=== PATIENT | male | born 1930 | race Caucasian/White ===

== ENCOUNTER 2017-02-26 18:31 | Observation (INO) | payer MEDICARE, OTHER ==
[~2017-02-26] VITALS: Ht 167.6 cm; Wt 88.0 kg
[2017-02-26] MEDS ORDERED: SOD CHLORIDE 0.9% 500 ML IV STA (18:49)
--- NOTE | 2017-02-26 19:04 | ERA ---
ER Documentation Chief Complaint Date/Time DATE: 02/26/17 TIME: 19:03 Chief Complaint bloody stool x 2 starting this afternoon HPI 86-year-old man brought in by EMS from senior care for blood per rectum, nurses at the facility noted 2 episodes today of bright red blood per rectum and melena. He has had no fevers or chills, no chest pain or shortness of breath, no loss of consciousness. HPI supplemented by reviewing past medical history, senior care records, speaking to EMS, nursing staff. ROS All systems reviewed and are negative except as per history of present illness. Allergies Allergies: Coded Allergies: No Known Allergy (Unverified , 02/26/17) PMhx/Soc Myasthenia gravis, hypertension, gastroesophageal reflux disease, rheumatoid arthritis, BPH, dysphagia, tracheostomy, gastrostomy tube, diabetes mellitus, psychiatric illness, bedbound state History of Surgery: Yes (trache; gtube) Anesthesia Reaction: No Hx Neurological Disorder: No Hx Respiratory Disorders: No Hx Cardiac Disorders: Yes (htn) Hx Psychiatric Problems: No Hx Miscellaneous Medical Probl: Yes (anemia, dm2, gerd, parkinsons, dyphagia; myasthenia gravis) Hx Alcohol Use: No Hx Substance Use: No Hx Tobacco Use: No Smoking Status: Never smoker FmHx Family History: No diabetes Physical Exam Vitals Vital Signs Date Time Temp Pulse Resp B/P Pulse Ox O2 Delivery O2 Flow Rate FiO2 02/26/17 20:40 72 19 96/78 100 Room Air 3.0 Trach Collar 02/26/17 19:30 98 3.0 30 02/26/17 19:18 Simple Mask 3 02/26/17 18:38 98.9 64 20 108/62 100 Physical Exam GENERAL: Well-developed, elderly, chronically debilitated man, afebrile HEENT: Dry mucous membranes, pink conjunctiva, no cervical spine tenderness or deformity, tracheostomy in place NEURO: Alert and oriented 3, cranial nerves II through XII intact bilaterally, pupils equal round reactive to light, no facial asymmetry CARDIAC: Regular rate and rhythm, no murmurs rubs or gallops LUNGS: Clear bilaterally no wheezing crackles or stridor ABDOMEN: Soft nontender, no guarding, no rigidity, no rebound, no psoas sign no obturator sign. SKIN: Warm and dry to touch, no abrasions, contusions, or hematomas, no lacerations, no ecchymosis, no target lesions, and without ulcers EXTREMITIES: No clubbing cyanosis or edema, calves are bilaterally symmetrical, no Homans sign, no popliteal cord sign. Distal pulses equal and bilateral PSYCH: Normal affect without agitation or irritability Result Diagram: 02/26/17190402/26/171904 Results 24 hrs Laboratory Tests Test 02/26/17 19:05 White Blood Count 9.610^3/ul Red Blood Count 3.4010^6/ul Hemoglobin 10.4g/dl Hematocrit 33.5% Mean Corpuscular Volume 98.5fl Mean Corpuscular Hemoglobin 30.6pg Mean Corpuscular Hemoglobin Concent 31.0g/dl Red Cell Distribution Width 17.7% Platelet Count 60914^3/UL Mean Platelet Volume 9.5fl Neutrophils % 83.4% Lymphocytes % 6.9% Monocytes % 5.7% Eosinophils % 1.4% Basophils % 0.2% Nucleated Red Blood Cells % 0.0/100WBC Neutrophils # 8.010^3/ul Lymphocytes # 0.710^3/ul Monocytes # 0.610^3/ul Eosinophils # 0.110^3/ul Basophils # 0.010^3/ul Nucleated Red Blood Cells # 0.010^3/ul Prothrombin Time 11.7Sec Prothrombin Time Ratio 0.9 INR International Normalized Ratio 0.86 Activated Partial Thromboplast Time 28.2Sec Sodium Level 134mmol/L Potassium Level 4.2mmol/L Chloride Level 97mmol/L Carbon Dioxide Level 37mmol/L Anion Gap 4 Blood Urea Nitrogen 38mg/dl Creatinine 1.13mg/dl Glucose Level 103mg/dl Calcium Level 8.5mg/dl Total Bilirubin 0.2mg/dl Direct Bilirubin 0.00mg/dl Indirect Bilirubin 0.2mg/dl Aspartate Amino Transf (AST/SGOT) 22IU/L Alanine Aminotransferase (ALT/SGPT) 41IU/L Alkaline Phosphatase 111IU/L Troponin I 0.122ng/ml Total Protein 5.3g/dl Albumin 3.2g/dl Globulin 2.10g/dl Albumin/Globulin Ratio 1.52 Lipase 91U/L Current Medications Medications (Trade) Dose Ordered Sig/Kenzie Route PRN Reason Start Time Stop Time Status Last Admin Dose Admin Sodium Chloride (NS) 500 ml @ 500 mls/hr Q1H STAT IV 02/26/17 18:49 02/26/17 19:48 DC 02/26/17 19:17 Procedures/MDM IV line was established patient was placed on electronic device monitor rhythm strip revealed a narrow complex regular rhythm at about 70 bpm. Patient was afebrile. EKG performed, read by me revealed an atrial fibrillation rate controlled at 68 bpm, normal axis, narrow QRS complex, no concerning ST elevations or depressions noted. One view chest x-ray performed, read by me there is atelectatic changes bilaterally, and sternotomy wires, no acute infiltrates, no pneumothorax. I administered about 2 L of normal saline normal saline intravenously for dehydration. Patient is without complaints of pain and he has no active bleeding at this time. CBC was unremarkable, electrolytes revealed dehydration with a BUN/creatinine of 38/1.1, liver function tests normal, troponin elevated at 0.12. We will follow and trend out the troponin if the second troponin is higher he may require antiplatelet and/or anticoagulant therapy although he is without complaints of chest pain at this time and presented with blood per rectum so antiplatelet therapy will be deferred for now. CT scan of the abdomen and pelvis has been ordered results are unremarkable, gastrostomy tube is in place, no evidence of acute inflammatory or infectious pathology. Patient will be admitted to [facility] under Dr. Mcarthur for continued medical management and possible colonoscopy Departure Diagnosis: Primary Impression: Rectal bleeding Additional Impressions: Dehydration Myasthenia gravis Non-STEMI (non-ST elevated myocardial infarction) Condition: GARRETT Hightower MD Feb 26, 2017 19:04
[2017-02-26 19:11] LABS: ADD SCAN DIFF NO
[2017-02-26 19:30] LABS: INR 0.86; PROTIME 11.7 Sec (12.2-14.2); PT RATIO 0.9
[2017-02-26 19:31] LABS: PARTIAL THROMBOPLASTIN TIME 28.2 Sec (25.0-35.0)
[2017-02-26 19:32] LABS: BASOPHILS % 0.2 % (0.0-2.0); EOSINOPHILS # 0.1 10^3/ul (0.0-0.5); EOSINOPHILS % 1.4 % (0.0-7.0); HEMATOCRIT 33.5 % (42.0-52.0); HEMOGLOBIN 10.4 g/dl (14.0-18.0); LYMPHOCYTES # 0.7 10^3/ul (0.8-2.9); LYMPHOCYTES % 6.9 % (15.0-51.0); MEAN CORPUSCULAR HEMOGLOBIN 30.6 pg (29.0-33.0); MEAN CORPUSCULAR VOLUME 98.5 fl (82.0-101.0); MEAN PLATELET VOLUME 9.5 fl (7.4-10.4); MONOCYTE # 0.6 10^3/ul (0.3-0.9); MONOCYTES % 5.7 % (0.0-11.0); NEUTROPHILS % 83.4 % (39.0-77.0); PLATELET COUNT 228 10^3/UL (140-415); RED CELL DISTRIBUTION WIDTH 17.7 % (11.5-14.5); WHITE BLOOD COUNT 9.6 10^3/ul (4.8-10.8)
--- NOTE | 2017-02-26 19:32 | RADRPT ---
PROCEDURE: XR Chest. CLINICAL INDICATION: Shortness of breath. Sepsis and upper GI bleed. TECHNIQUE: Single frontal view. COMPARISON: 01/28/2017. FINDINGS: The tracheostomy tube is in satisfactory position. There is mild atelectasis at the lung bases, imp roved on the right and unchanged on the left. There are benign calcified granulomas in the left mid to lower lung zone laterally. The lungs are otherwise clear. The heart is enlarged. There is calcification in the aorta consistent with atherosclerosis. There are sternal wires and mediastinal clips. There is no pleural effusion. There is no pneumothorax. IMPRESSION: 1. Improved appearance of the right lung base. 2. No other change from 01/28/2017. RPTAT: QQ .Diogenes Pickens MD, Date Time Electronically viewed and signed by .Diogenes Pickens MD, on 02/26/2017 19:32 .R/
[2017-02-26 19:36] LABS: ALBUMIN 3.2 g/dl (3.3-4.9); ALBUMIN/GLOBULIN RATIO 1.52; BILIRUBIN,INDIRECT 0.2 mg/dl (0-1.1); BILIRUBIN,TOTAL 0.2 mg/dl (0.2-1.3); CALCIUM 8.5 mg/dl (8.4-10.2); CREATININE 1.13 mg/dl (0.61-1.24); POTASSIUM 4.2 mmol/L (3.5-5.1); TOTAL PROTEIN 5.3 g/dl (6.1-8.1)
[2017-02-26 19:47] LABS: TROPONIN-I 0.122 ng/ml (0.00-0.12)
--- NOTE | 2017-02-26 22:19 | RADRPT ---
PROCEDURE: CT abdomen and pelvis without contrast. CLINICAL INDICATION: Abdominal pain TECHNIQUE: CT scan of the abdomen and pelvis without contrast was performed. Sagittal and coronal reformatted images were obtained from the axial source images. CTDI = 21.18 mGy; DLP = 1213.84 mGy- cm COMPARISON: None. FINDINGS: Visualized lower thorax: Left greater than right lower lobe subsegmental atelectasis or scarring wi th mild elevation of the left hemidiaphragm. Sternotomy wires are present. There is no evidence fo r pleural effusion. Liver, gallbladder, pancreas and spleen: The liver is normal and size, contour and attenuation. Th ere is no evidence for a liver mass or ductal dilatation. Cholecystectomy clips are seen. No commo n bile duct abnormality is demonstrated. Mild fatty deposition throughout the pancreas is present w ithout pancreatitis or ductal dilatation. The spleen is normal in size. Adrenal glands and genitourinary system: The adrenal glands are normal bilaterally. Mild bilateral renal cortex thinning is noted without evidence of calculus or hydronephrosis, mild bilateral renal atrophy is seen. The ureters are unremarkable. No urinary bladder abnormality is demonstrated. Th e prostate gland is normal in size. The visualized scrotum is unremarkable. Gastrointestinal system: A gastrostomy is in good position the bulb within the lumen of the stomach . There is no evidence of gastric wall thickening. The small bowel is normal in caliber with no il eus, obstruction or wall thickening. There is no evidence of appendicitis. A few diverticula of the colon are present. There is no evidence for colitis or diverticulitis. Peritoneum, retroperitoneum, lymph nodes and vessels: The abdominal aorta is normal in caliber. The re is severe aortic and iliac atherosclerotic calcification. The inferior vena cava is unremarkable . There is no evidence for adenopathy or mass. There is no ascites. No pneumoperitoneum is present Osseous structures and musculoskeletal findings: Demineralization with severe multilevel degenerati ve spondylosis of the thoracolumbar spine without evidence of fracture, lytic or blastic lesion. Mi ld degenerative narrowing of the hip joints is present bilaterally. No muscular abnormality or soft tissue pathology is present. RPTAT:HJJR IMPRESSION: 1. No evidence of acute intra-abdominal or intrapelvic pathology. 2. Basilar subsegmental atelectasis or scarring with elevation of the left hemidiaphragm and post t horacotomy changes. 3. Cholecystectomy changes and fatty infiltration of the pancreas. 4. Bilateral renal atrophy. 5. Mild diverticular disease of the colon without diverticulitis. 6. Extensive atherosclerotic calcification of the aorta and iliac systems. 7. Demineralization with multilevel thoracolumbar spondylosis and degenerative disk disease. 8. Gastrostomy tube in good position. Physician Alex Date Time Electronically viewed and signed by Delvis Gomez Physician on 02/26/2017 22:19 JR/
[2017-02-27] VITALS (15 sets, daily range): BP systolic 96–132; BP diastolic 54–67; PULSE 72–113; RESP 16–20; Ht 167.6 cm; Wt 88.0 kg
[2017-02-27] MEDS ORDERED: CHLO473M4 MM (02:02)
[2017-02-27] MEDS ORDERED: AZAT50TA24 GTB (02:02)
[2017-02-27] MEDS ORDERED: BISA10SU75 PR (02:02)
[2017-02-27] MEDS ORDERED: MAGN400O4 G-TUBE (02:02)
[2017-02-27] MEDS ORDERED: ENOX30DI8 SQ (02:02)
[2017-02-27] MEDS ORDERED: FURO20TA3 GTB (02:02)
[2017-02-27] MEDS ORDERED: FAMO40TA52 G-TUBE (02:02)
[2017-02-27] MEDS ORDERED: ACET-2158 GTB (02:02)
[2017-02-27] MEDS ORDERED: CARB1TAB42 G-TUBE (02:02)
[2017-02-27] MEDS ORDERED: MICO30CR17 TOP (02:02)
[2017-02-27] MEDS ORDERED: METO-448 GTB (02:02)
[2017-02-27] MEDS ORDERED: QUET25TA26 G-TUBE (02:02)
[2017-02-27] MEDS ORDERED: PYRI60TA G-TUBE (02:02)
[2017-02-27] MEDS ORDERED: MULT-761 G-TUBE (02:02)
[2017-02-27] MEDS ORDERED: ASPI81TA3 PO (02:02)
[2017-02-27] MEDS ORDERED: ACETAMINOPHEN 325 MG TAB GTB PRN (02:30)
[2017-02-27] MEDS ORDERED: BISACODYL 10 MG SUPP PR PRN (02:30)
[2017-02-27] MEDS ORDERED: MAGNESIUM HYDROXIDE 30ML CUP GTB PRN (02:30)
[2017-02-27] MEDS: CARBIDOPA/LEVODOPA 25-100 (CR) TAB PO SCH ×3 (06:56→21:47)
[2017-02-27] MEDS: FUROSEMIDE 20 MG TAB GTB SCH (06:56)
[2017-02-27] MEDS: PYRIDOSTIGMINE 60 MG TAB GTB SCH ×3 (06:56→21:47)
[2017-02-27] MEDS ORDERED: GLUCOSE GEL 15 GRAM TUBE PO PRN ×2 (08:30)
[2017-02-27] MEDS ORDERED: DEXTROSE 50% 50 ML SYRINGE IV PRN ×2 (08:30)
[2017-02-27] MEDS ORDERED: GLUCOSE GEL 15 GRAM TUBE BUCCAL PRN (08:30)
[2017-02-27] MEDS ORDERED: GLUCAGON 1 MG INJ IM PRN (08:30)
[2017-02-27] MEDS: AZATHIOPRINE 50 MG TAB GTB SCH ×2 (08:51→21:48)
[2017-02-27] MEDS: MULTIVITAMINS THERAPEUTIC TAB GTB SCH (08:51)
[2017-02-27] MEDS: ASPIRIN 81 MG TAB PO SCH (08:51)
[2017-02-27] MEDS: QUETIAPINE 25 MG TAB GTB SCH ×2 (08:51→21:47)
[2017-02-27] MEDS: FAMOTIDINE 20 MG TAB GTB SCH (08:51)
[2017-02-27] MEDS: MICONAZOLE 2% 30 GM CR TOP SCH ×2 (08:52→21:48)
[2017-02-27] MEDS: METOPROLOL 25 MG TAB GTB SCH ×2 (08:52→21:49)
[2017-02-27] MEDS: CHLORHEXIDINE GLUCONATE 15 ML UD CUP MM SCH ×2 (08:53→21:47)
[2017-02-27] MEDS ORDERED: ENOXAPARIN 30 MG/0.3 ML SYG SC SCH (09:00)
[2017-02-27 09:13] LABS: ADD SCAN DIFF NO
[2017-02-27 09:20] LABS: ABNORMAL IP MESSAGE 1; BASOPHILS % 0.1 % (0.0-2.0); EOSINOPHILS # 0.2 10^3/ul (0.0-0.5); EOSINOPHILS % 1.6 % (0.0-7.0); HEMATOCRIT 31.5 % (42.0-52.0); HEMOGLOBIN 9.6 g/dl (14.0-18.0); LYMPHOCYTES # 0.5 10^3/ul (0.8-2.9); LYMPHOCYTES % 5.4 % (15.0-51.0); MEAN CORPUSCULAR HEMOGLOBIN 29.6 pg (29.0-33.0); MEAN CORPUSCULAR HGB CONC 30.5 g/dl (32.0-37.0); MEAN CORPUSCULAR VOLUME 97.2 fl (82.0-101.0); MEAN PLATELET VOLUME 9.8 fl (7.4-10.4); MONOCYTE # 0.6 10^3/ul (0.3-0.9); MONOCYTES % 5.9 % (0.0-11.0); NEUTROPHIL # 7.9 10^3/ul (1.6-7.5); NEUTROPHILS % 85.1 % (39.0-77.0); PLATELET COUNT 231 10^3/UL (140-415); RED BLOOD COUNT 3.24 10^6/ul (4.70-6.10); WHITE BLOOD COUNT 9.3 10^3/ul (4.8-10.8)
[2017-02-27 09:33] LABS: IRON 38 ug/dl (35-150)
[2017-02-27 09:40] LABS: CALCIUM 8.3 mg/dl (8.4-10.2); CREATININE 0.84 mg/dl (0.61-1.24); POTASSIUM 4.1 mmol/L (3.5-5.1)
[2017-02-27 09:42] LABS: TOTAL IRON BINDING CAPACITY 257 ug/dl (241-421)
[2017-02-27] MEDS: INSULIN ASPART [NOVOLOG] 3 ML PEN SC SCH ×2 (12:04→17:52)
--- NOTE | 2017-02-27 16:28 | CONS ---
DATE OF ADMISSION: 02/26/2017 DATE OF CONSULTATION: 02/27/2017 TYPE OF CONSULTATION: Pulmonary. REFERRING PHYSICIAN: Dr. Abernathy REASON FOR CONSULTATION: Chronic respiratory failure. HISTORY OF PRESENT ILLNESS: This is an 86-year-old gentleman, resident of a subacute care facility who was brought to the emergency room with findings of rectal bleed and subsequently hospitalized. The patient has a past medical history significant for chronic respiratory failure, tracheostomy dep endent, history of Parkinson's disease, myasthenia gravis, diabetes mellitus, hypertension, BPH, psy chiatric illness and GERD. At present, the patient is lying in bed, does not appear in acute distre ss. REVIEW OF SYSTEMS: Unable to obtain. PAST MEDICAL HISTORY: As mentioned above. ALLERGIES: NONE KNOWN TO ME. SOCIAL HABITS: Resident of a nursing facility. FAMILY HISTORY: Unavailable at this time. PHYSICAL EXAMINATION: VITAL SIGNS: Blood pressure 109/61, pulse 66, respirations 18, temperature is 97.8. HEENT: Pupils are equal and reactive to light. NECK: Supple, no JVD noted, no cervical lymphadenopathy noted, no carotid bruits heard. Tracheosto my in place. LUNGS: Fair breath sounds bilaterally. CARDIOVASCULAR: S1, S2 normal. ABDOMEN: Soft, nontender. No organomegaly or masses noted. G-tube in place. EXTREMITIES: No clubbing or cyanosis noted. NEUROLOGIC: Generalized weakness. LABORATORIES: Sodium 135, potassium 4.1, chloride 101, CO2 34, BUN 32, creatinine 0.84, glucose 170 . WBC 9.3, hemoglobin 9.6, hematocrit 31.5, platelets 231. Chest x-ray shows basilar atelectasis. CT scan of abdomen did not reveal any significant pathology. IMPRESSION: 1. Rectal bleed. 2. Chronic respiratory failure, tracheostomy dependent. 3. History of myasthenia gravis. 4. History of dysphagia status post G-tube placement. 5. History of diabetes mellitus. 6. History of hypertension. 7. History of Parkinson's disease. 8. Anemia. RECOMMENDATIONS: 1. Continue oxygen via tracheostomy. 2. Followup hemoglobin and hematocrit closely and transfuse p.r.n. 3. Gastrointestinal evaluation pending. 4. Discussed with the staff. Dictated By: IGNACIO MERRILL MD, MA/NATALIE Conf#: [id number] DID#: [id number]
--- NOTE | 2017-02-27 16:51 | CONS ---
DATE OF ADMISSION: 02/26/2017 DATE OF CONSULTATION: TYPE OF CONSULTATION: Cardiology. REASON FOR CONSULTATION: Elevated troponin. HISTORY OF PRESENT ILLNESS: Mr. Aguero is an 86-year-old gentleman brought to the emergency room for bright red blood per rectum. He denies chest pain, shortness of breath. He is on trach collar. REVIEW OF SYSTEMS: Negative except as per HPI. PAST MEDICAL HISTORY: Myasthenia gravis, hypertension, diabetes. PAST SURGICAL HISTORY: Tracheostomy, gastrostomy. FAMILY HISTORY: Noncontributory. PHYSICAL EXAMINATION: GENERAL: He is in no distress, resting comfortably in a hospital bed. VITAL SIGNS: Temperature 97.8, pulse 85, blood pressure 109/61. NECK: No jugular venous distention. Tracheostomy tube, trach collar. CARDIAC: Irregular rate and rhythm. ABDOMEN: Soft. EXTREMITIES: Reveal no edema. DIAGNOSTIC DATA: EKG shows sinus rhythm with first degree AV block, otherwise normal. MEDICATIONS: 1. Insulin. 2. Aspirin. 3. Imuran. 4. ____. 5. Metoprolol. 6. Miconazole. 7. Seroquel. 8. Furosemide. 9. Mestinon. LABORATORY RESULTS: White count 9.3, hematocrit 31.5, platelet count 231. Sodium 135, potassium 4. 1, BUN 32, creatinine 0.8. Troponin 0.07. Presenting troponin 0.1-2. ASSESSMENT: Elevated troponin in the absence of other symptoms, highly nonspecific, given the rapid normalization of the troponin on repeat. At this time, I would not recommend any further immediate cardiac evaluation to exclude acute stephen ry syndrome. Would recommend management of the bright red blood per rectum as per recommendations f rom GI. The patient has had echocardiogram in January 2017, which showed normal LV function. Dictated By: DEBI MOODY/NATALIE Conf#: [id number] DID#: [id number]
[2017-02-27] MEDS ORDERED: PEG/ELECTROLYTES 4L BTL PO ONE ×2 (17:00→20:00)
--- NOTE | 2017-02-27 18:20 | CONS ---
DATE OF ADMISSION: 02/26/2017 DATE OF CONSULTATION: REASON FOR CONSULTATION: Rectal bleeding. HISTORY OF PRESENT ILLNESS: An 86-year-old male brought to the emergency room for rectal bleeding. This was noticed by the staff nurse at the snf. No fever, no chills, no abdominal pain, n o nausea, no vomiting, but as per the staff, patient is confused and so his history is very unreliab le. ALLERGIES: NO KNOWN ALLERGIES. PAST MEDICAL HISTORY: He has a G-tube, PEG, diabetes mellitus, psychiatric illness, bedbound, BPH, rheumatoid arthritis, hypertension, myasthenia gravis, dysphagia, and a tracheostomy. FAMILY HISTORY: Negative. PHYSICAL EXAMINATION: GENERAL: Alert, awake, looks good for his age. VITAL SIGNS: Stable. HEENT: Unremarkable. NECK: Supple. No thyromegaly, no lymphadenopathy. CARDIOVASCULAR: No murmur, gallop, or click. LUNGS: Clear. ABDOMEN: Benign. EXTREMITIES: No edema. CENTRAL NERVOUS SYSTEM: Grossly within normal limits. IMPRESSION: 1. Rectal bleeding. 2. Anemia. 3. Status post tracheostomy. 4. Status post gastrostomy tube. 5. Myasthenia gravis. 6. History of hypertension. 7. Diabetes mellitus. 8. Psychiatric illness. 9. Rheumatoid arthritis. 10. Benign prostatic hypertrophy. 11. The patient is confined to the bed. PLAN: At this point, is to get further information from the , who is at present not available. If it is true rectal bleeding, then definitely patient needs a colonoscopy. In the interim, we brent l monitor H and H. Continue present care. Dictated By: EDUAR QUIROZ/NATALIE Conf#: [id number] DID#: [id number] CC: HELEN RILEY DO; EDUAR VERA MD;*EndCC*
[2017-02-28] VITALS (21 sets, daily range): BP systolic 102–141; BP diastolic 44–65; PULSE 50–100; RESP 13–24
[2017-02-28] MEDS ORDERED: INSULIN ASPART [NOVOLOG] 3 ML PEN SC SCH
[2017-02-28] MEDS: Insulin NOVOLOG SS MILD Algorithm (NPO/TPN/ENTERAL FEEDS) SC SCH ×4 (00:12→17:59)
[2017-02-28] MEDS ORDERED: ACCU-CHEK XX SCH (02:00)
[2017-02-28] MEDS: FUROSEMIDE 20 MG TAB GTB SCH (05:59)
[2017-02-28] MEDS: CARBIDOPA/LEVODOPA 25-100 (CR) TAB PO SCH ×3 (06:00→21:37)
[2017-02-28] MEDS: PYRIDOSTIGMINE 60 MG TAB GTB SCH ×3 (06:00→21:37)
[2017-02-28] MEDS ORDERED: PROPOFOL 200 MG INJ ONE (07:00)
[2017-02-28 08:08] LABS: ADD SCAN DIFF NO
[2017-02-28 08:22] LABS: ABNORMAL IP MESSAGE 1; BASOPHILS % 0.3 % (0.0-2.0); EOSINOPHILS # 0.1 10^3/ul (0.0-0.5); EOSINOPHILS % 1.2 % (0.0-7.0); HEMATOCRIT 29.6 % (42.0-52.0); HEMOGLOBIN 9.3 g/dl (14.0-18.0); LYMPHOCYTES # 0.6 10^3/ul (0.8-2.9); LYMPHOCYTES % 7.8 % (15.0-51.0); MEAN CORPUSCULAR HEMOGLOBIN 30.3 pg (29.0-33.0); MEAN CORPUSCULAR HGB CONC 31.4 g/dl (32.0-37.0); MEAN CORPUSCULAR VOLUME 96.4 fl (82.0-101.0); MONOCYTE # 0.6 10^3/ul (0.3-0.9); NEUTROPHIL # 6.2 10^3/ul (1.6-7.5); PLATELET COUNT 221 10^3/UL (140-415); RED BLOOD COUNT 3.07 10^6/ul (4.70-6.10); RED CELL DISTRIBUTION WIDTH 17.9 % (11.5-14.5); WHITE BLOOD COUNT 7.6 10^3/ul (4.8-10.8)
[2017-02-28 08:42] LABS: CALCIUM 8.6 mg/dl (8.4-10.2); CREATININE 0.7 mg/dl (0.61-1.24); MAGNESIUM 2.2 mg/dl (1.7-2.5); PHOSPHORUS 2.9 mg/dl (2.5-4.9); POTASSIUM 3.8 mmol/L (3.5-5.1)
[2017-02-28] MEDS ORDERED: DEXTROSE 5%-0.45% NACL 1,000 ML IV SCH (09:00)
[2017-02-28] MEDS: MICONAZOLE 2% 30 GM CR TOP SCH ×2 (09:00→21:34)
[2017-02-28] MEDS ORDERED: LIDOCAINE 2% (SDV) 5 ML INJ ONE (12:17)
[2017-02-28] MEDS ORDERED: PROPOFOL 20 ML ONE (12:17)
[2017-02-28] MEDS ORDERED: ONDANSETRON 4 MG INJ IV PRN (12:30)
--- NOTE | 2017-02-28 13:42 | PN ---
DATE: 02/28/2017 SUBJECTIVE: The patient is scheduled for colonoscopy this morning, the patient was noted also to be confused, placed on restraints. No other acute events noted. OBJECTIVE: VITAL SIGNS: Blood pressure 113/44, respirations 18, pulse 82, temperature 97.5. HEENT: Head is normocephalic. NECK: Supple. HEART: Regular rate. LUNGS: Show diminished breath sounds at the base. ABDOMEN: Soft, nontender to palpation. No rebound or guarding. EXTREMITIES: Negative for clubbing, cyanosis, no edema. DERMATOLOGIC: No rashes. MUSCULOSKELETAL: No joint effusions. NEUROLOGIC: No change in exam. LABORATORY DATA: Shows white count 7.6, hemoglobin 9.3, hematocrit 29.6, platelet count 221. Sodiu m 141, potassium 3.8, BUN 23, creatinine 0.70. ASSESSMENT AND PLAN: 1. Hematochezia, acute lower gastrointestinal bleed. Underlying etiology is unclear if this is a d iverticular versus hemorrhoidal. The patient's hemoglobin levels have been stable. The patient was seen by Dr. Richmond pending a colonoscopy. 2. Acute encephalopathy. Etiology may be toxic metabolic. Will continue to monitor. 3. Elevated troponin, questionable acute coronary syndrome. The patient's repeat troponin has been negative. Appreciate cardiology evaluation. Continue to monitor. 4. History of myasthenia gravis. Continue pyridostigmine. 5. Hypertension. Continue metoprolol. 6. Rheumatoid arthritis. Continue Imuran. 7. Hypertension. Continue current blood pressure regimen. 8. Parkinson disease. Continue carbidopa. 9. History of psychosis. Continue Seroquel. 10. Gastrointestinal and deep venous thrombosis prophylaxis. PPI, sequential leg squeezers. 11. Chronic respiratory failure, status post tracheostomy, currently stable on trach mask. Continu e to monitor. 12. Dysphagia, status post percutaneous endoscopic gastrostomy, tube feeding. 13. Hypoglycemia. Continue to monitor glucose levels. Continue Accu-Cheks and insulin sliding scal e. Dictated By: HELEN BULLOCK/NATALIE Conf#: [id number] DID#: [id number]
[2017-02-28] MEDS: AZATHIOPRINE 50 MG TAB GTB SCH ×2 (14:31→21:33)
[2017-02-28] MEDS: FAMOTIDINE 20 MG TAB GTB SCH (14:32)
[2017-02-28] MEDS: ASPIRIN 81 MG TAB PO SCH (14:32)
[2017-02-28] MEDS: MULTIVITAMINS THERAPEUTIC TAB GTB SCH (14:32)
[2017-02-28] MEDS: QUETIAPINE 25 MG TAB GTB SCH ×2 (14:33→21:33)
[2017-02-28] MEDS: METOPROLOL 25 MG TAB GTB SCH ×2 (14:33→21:33)
[2017-02-28] MEDS: CHLORHEXIDINE GLUCONATE 15 ML UD CUP MM SCH ×2 (14:39→21:33)
--- NOTE | 2017-02-28 18:07 | PN ---
DATE: 02/28/2017 CARDIOLOGY FOLLOWUP SUBJECTIVE: Discussed with the staff. The patient with no chest pain or pressure. No palpitation. Denies any bleeding to me. Rhythm strip was reviewed. Remains in sinus rhythm, sinus bradycardia . MEDICATIONS: Reviewed, which includes: 1. Zofran p.r.n. 2. Insulin. 3. Aspirin 81. 4. Amiodarone. 5. . 6. Metoprolol 25 b.i.d. 7. Lasix 20. PHYSICAL EXAMINATION: VITAL SIGNS: Temperature 97.8, heart rate of 50, blood pressure 109/49, respiration 20. HEENT: Normocephalic, atraumatic. Pupils equal. NECK: Status post trach, on oxygen. CARDIOVASCULAR: Regular rate and rhythm. CHEST: Previous sternotomy from trach site. GASTROINTESTINAL: Soft, nontender. EXTREMITIES: With trivial edema. NEUROLOGIC: Awake, responds appropriately, appears to be calm. LABORATORY DATA: WBC of 7.6, hemoglobin 9.3, platelets of 221. Sodium 141, potassium 3.8, BUN of 2 3, creatinine 0.7, glucose of 107. ASSESSMENT AND PLAN: 1. Hematochezia has improved. 2. Abnormal troponin. Has converted back to normal apparently. Probably false positive. 3. History of myasthenia gravis, status post ____ surgery. 4. Hypertension. 5. Rheumatoid arthritis. 6. History of encephalopathy and psychosis, improving now. RECOMMENDATIONS: We will continue with the current cardiac care. Will monitor on telemetry. Aspir in will be continued as long as no active bleeding is noted and remains stable. Dictated By: ALBINA KING/NATALIE Conf#: [id number] DID#: [id number] CC: HELEN RILEY DO;*EndCC*
[2017-03-01] VITALS (8 sets, daily range): BP systolic 104–116; BP diastolic 55–60; PULSE 69–71; RESP 18–20
[2017-03-01] MEDS: Insulin NOVOLOG SS MILD Algorithm (NPO/TPN/ENTERAL FEEDS) SC SCH ×3 (00:17→11:54)
[2017-03-01] MEDS: CARBIDOPA/LEVODOPA 25-100 (CR) TAB PO SCH ×2 (05:42→14:40)
[2017-03-01] MEDS: PYRIDOSTIGMINE 60 MG TAB GTB SCH ×2 (05:42→14:00)
[2017-03-01] MEDS: FUROSEMIDE 20 MG TAB GTB SCH (05:43)
[2017-03-01 08:17] LABS: ADD SCAN DIFF NO
[2017-03-01 08:24] LABS: ABNORMAL IP MESSAGE 1; BASOPHILS % 0.2 % (0.0-2.0); EOSINOPHILS # 0.1 10^3/ul (0.0-0.5); HEMATOCRIT 27.8 % (42.0-52.0); HEMOGLOBIN 8.8 g/dl (14.0-18.0); LYMPHOCYTES # 0.4 10^3/ul (0.8-2.9); LYMPHOCYTES % 8.5 % (15.0-51.0); MEAN CORPUSCULAR HEMOGLOBIN 30.7 pg (29.0-33.0); MEAN CORPUSCULAR HGB CONC 31.7 g/dl (32.0-37.0); MEAN CORPUSCULAR VOLUME 96.9 fl (82.0-101.0); MEAN PLATELET VOLUME 9.5 fl (7.4-10.4); MONOCYTE # 0.4 10^3/ul (0.3-0.9); MONOCYTES % 7.1 % (0.0-11.0); NEUTROPHIL # 4.1 10^3/ul (1.6-7.5); NEUTROPHILS % 81.2 % (39.0-77.0); PLATELET COUNT 242 10^3/UL (140-415); RED BLOOD COUNT 2.87 10^6/ul (4.70-6.10); RED CELL DISTRIBUTION WIDTH 17.5 % (11.5-14.5); WHITE BLOOD COUNT 5.1 10^3/ul (4.8-10.8)
[2017-03-01 08:43] LABS: CALCIUM 8.6 mg/dl (8.4-10.2); CREATININE 0.64 mg/dl (0.61-1.24); MAGNESIUM 2.1 mg/dl (1.7-2.5); PHOSPHORUS 3.5 mg/dl (2.5-4.9); POTASSIUM 3.7 mmol/L (3.5-5.1)
[2017-03-01] MEDS: CHLORHEXIDINE GLUCONATE 15 ML UD CUP MM SCH (08:48)
[2017-03-01] MEDS: MULTIVITAMINS THERAPEUTIC TAB GTB SCH (08:48)
[2017-03-01] MEDS: AZATHIOPRINE 50 MG TAB GTB SCH (08:48)
[2017-03-01] MEDS: ASPIRIN 81 MG TAB PO SCH (08:48)
[2017-03-01] MEDS: METOPROLOL 25 MG TAB GTB SCH (08:49)
[2017-03-01] MEDS: FAMOTIDINE 20 MG TAB GTB SCH (08:49)
[2017-03-01] MEDS: QUETIAPINE 25 MG TAB GTB SCH (08:49)
[2017-03-01] MEDS: MICONAZOLE 2% 30 GM CR TOP SCH (08:49)
--- NOTE | 2017-03-01 12:52 | CONS ---
Date/Time of Note Date/Time of Note DATE: 03/01/17 TIME: 12:50 Assessment/Plan Assessment/Plan Additional Assessment/Plan Assessment and recommendations; 1. Patient admitted for rectal bleeding without any further recurrence. 2. Chronic respiratory failure, maintained on tracheal T piece. 3. Prior CABG. 4. Myasthenia gravis. Continue current supportive care. [facility] be transferred to [facility] today. Consultation Date/Type/Reason Admit Date/Time Feb 26, 2017 at 22:19 Initial Consult Date Type of Consultation: Pulmonary 24 HR Interval Summary Free Text/Dictation Patient condition stable. Denies any shortness of breath, chest pain, abdominal pain, any further GI bleed. General exam; elderly male, awake, alert , currently in no distress. Exam/Review of Systems Vital Signs Vitals Vital Signs Date Time Temp Pulse Resp B/P Pulse Ox O2 Delivery O2 Flow Rate FiO2 03/01/17 12:40 70 03/01/17 11:47 96 8.0 35 03/01/17 11:39 98.1 19 116/55 03/01/17 05:15 Aerosol Mask Intake and Output 02/28/17 02/28/17 03/01/17 15:00 23:00 07:00 Intake Total 520 ml 920 ml Balance 520 ml 920 ml Exam HEENT exam is; supple neck, no JVD. No lymphadenopathy. Midline trachea. No thyromegaly. Pharynx is clear. Patient is edentulous and wears dentures. Right intraocular lens implant. Tracheostomy placed with clean insertion site. S2 T-piece. Chest examined; clear to auscultation. S1-S2 audible, no murmurs. Regular rhythm. There is a well-healed sternal scar. Abdomen exam is; protuberant. No organomegaly. G-tube in place. Bowel sounds. Extremity exam; no peripheral edema. +1+ bilaterally. 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 Results Result Diagram: 03/01/17 0718 03/01/17 0718 Results 24 hrs Laboratory Tests Test 02/28/17 13:16 02/28/17 17:56 03/01/17 00:10 03/01/17 05:42 Bedside Glucose 112 166 194 188 Test 03/01/17 07:18 03/01/17 11:50 White Blood Count 5.1 # Red Blood Count 2.87 L Hemoglobin 8.8 L Hematocrit 27.8 L Mean Corpuscular Volume 96.9 Mean Corpuscular Hemoglobin 30.7 Mean Corpuscular Hemoglobin Concent 31.7 L Red Cell Distribution Width 17.5 H Platelet Count 242 Mean Platelet Volume 9.5 Neutrophils % 81.2 H Lymphocytes % 8.5 L Monocytes % 7.1 Eosinophils % 2.0 Basophils % 0.2 Nucleated Red Blood Cells % 0.0 Neutrophils # 4.1 Lymphocytes # 0.4 L Monocytes # 0.4 Eosinophils # 0.1 Basophils # 0.0 Nucleated Red Blood Cells # 0.0 Sodium Level 140 Potassium Level 3.7 Chloride Level 105 Carbon Dioxide Level 32 H Anion Gap 7 L Blood Urea Nitrogen 22 H Creatinine 0.64 Glucose Level 84 Calcium Level 8.6 Phosphorus Level 3.5 Magnesium Level 2.1 Bedside Glucose 199 Medications Medications Current Medications Acetaminophen (Tylenol Tab) 325 mg Q4 PRN GTB PAIN; Start 02/27/17 at 02:30 Aspirin (Aspirin) 81 mg DAILY PO Last administered on 03/01/17 08:48; Admin Dose 81 MG; Start 02/27/17 at 09:00 Azathioprine (Imuran) 50 mg Q12 GTB Last administered on 03/01/17 08:48; Admin Dose 50 MG; Start 02/27/17 at 09:00 Bisacodyl (Dulcolax Supp) 10 mg Q48H PRN MI CONSTIPATION Last administered on 21:47; Admin Dose 10 MG; Start 02/27/17 at 02:30 Carbidopa/Levodopa (Sinemet Cr (25/ 100)) 1 tab Q8 PO Last administered on 03/01 05:42; Admin Dose 1 TAB; Start 02/27/17 at 06:00 Chlorhexidine Gluconate (Peridex) 15 ml Q12 MM Last administered on 03/01/17 08:48; Admin Dose 15 ML; Start 02/27/17 at 09:00 Enoxaparin Sodium (Lovenox) 30 mg Q12 SC Last administered on 02/27/17 08:53; Admin Dose 30 MG; Start 02/27/17 at 09:00; Status Future Hold Famotidine (Pepcid) 40 mg DAILY GTB Last administered on 03/01/17 08:49; Admin Dose 40 MG; Start 02/27/17 at 09:00 Furosemide (Lasix) 20 mg DAILY@06 GTB Last administered on 03/01/17 05:43; Admin Dose 20 MG; Start 02/27/17 at 06:00 Magnesium Hydroxide (Milk Of Mag) 30 ml Q24H PRN GTB CONSTIPATION; Start at 02:30 Metoprolol Tartrate (Lopressor) 25 mg BID GTB Last administered on 03/01/17 08 :49; Admin Dose 25 MG; Start 02/27/17 at 09:00 Miconazole Nitrate (Miconazole 2% Cr) 1 applic BID TOP Last administered on 08:49; Admin Dose 1 APPLIC; Start 02/27/17 at 09:00 Multivitamins Therapeutic (Theragran) 1 tab DAILY GTB Last administered on 03/01 08:48; Admin Dose 1 TAB; Start 02/27/17 at 09:00 Pyridostigmine [place] (Mestinon) 60 mg Q8 GTB Last administered on 03/01/17 05:42; Admin Dose 60 MG; Start 02/27/17 at 06:00 Quetiapine Fumarate (Seroquel) 25 mg BID GTB Last administered on 03/01/17 08: 49; Admin Dose 25 MG; Start 02/27/17 at 09:00 Miscellaneous Information 1 ea NOTE XX ; Start 02/27/17 at 08:30 Glucose (Glutose) 15 gm Q15M PRN PO DECREASED GLUCOSE; Start 02/27/17 at 08:30 Glucose (Glutose) 22.5 gm Q15M PRN PO DECREASED GLUCOSE; Start 02/27/17 at 08: 30 Dextrose (D50w Syringe) 25 ml Q15M PRN IV DECREASED GLUCOSE; Start 02/27/17 at 08:30 Dextrose (D50w Syringe) 50 ml Q15M PRN IV DECREASED GLUCOSE; Start 02/27/17 at 08:30 Glucagon (Glucagen) 1 mg Q15M PRN IM DECREASED GLUCOSE; Start 02/27/17 at 08:30 Glucose (Glutose) 15 gm Q15M PRN BUCCAL DECREASED GLUCOSE; Start 02/27/17 at 08 :30 Insulin Aspart (Novolog Insulin Pen) (Adult SC Insulin - Mild Algorithm)... Q6 SC Last administered on 03/01/17t 11:54; Admin Dose 2 UNIT; Start 02/28/17 at 00:00 MITCH EARLY Mar 01, 2017 12:52
--- NOTE | 2017-03-01 17:20 | PN ---
Date/Time of Note Date/Time of Note DATE: 03/01/17 TIME: 17:17 Assessment/Plan VTE Prophylaxis VTE Prophylaxis Intervention: other Lines/Catheters IV C[facility]ter Type (from [facility]): Saline Lock Assessment/Plan Chief Complaint/Hosp Course ASSESSMENT AND PLAN: 1. Hematochezia has improved. 2. Abnormal troponin. Has converted back to normal apparently. Probably false positive. 3. History of myasthenia gravis, status post surgery. 4. Hypertension. 5. Rheumatoid arthritis. 6. History of encephalopathy and psychosis, improving now. 7. sinus arvind: asymptomatic RECOMMENDATIONS: We will continue with the current cardiac care. Aspirin will be continued as long as no active bleeding is noted and remains stable. Problems: Subjective 24 Hr Interval Summary Free Text/Dictation Discussed with the staff and rhythm was reviewed. The patient with no chest pain or pressure. No palpitation. Denies any bleeding to me. Rhythm strip was reviewed. Remains in sinus rhythm, sinus bradycardia. MEDICATIONS: Reviewed, . Exam/Review of Systems Vital Signs Vitals Vital Signs Date Time Temp Pulse Resp B/P Pulse Ox O2 Delivery O2 Flow Rate FiO2 03/01/17 12:40 70 03/01/17 11:47 96 8.0 35 03/01/17 11:39 98.1 19 116/55 03/01/17 05:15 Aerosol Mask Intake and Output 02/28/17 02/28/17 03/01/17 15:00 23:00 07:00 Intake Total 520 ml 920 ml Balance 520 ml 920 ml Exam PHYSICAL EXAMINATION: VITAL SIGNS: Temperature 97.8, heart rate of 50, blood pressure 109/49, respiration 20. HEENT: Normocephalic, atraumatic. Pupils equal. NECK: Status post trach, on oxygen. CARDIOVASCULAR: Regular rate and rhythm. CHEST: Previous sternotomy from trach site. GASTROINTESTINAL: Soft, nontender. EXTREMITIES: With trivial edema. NEUROLOGIC: Awake, responds appropriately, appears to be calm. Results Result Diagram: 03/01/1718 03/01/1718 Results 24 hrs Laboratory Tests Test 02/28/17 17:56 03/01/17 00:10 03/01/17 05:42 03/01/17 07:18 Bedside Glucose 166 194 188 White Blood Count 5.1 # Red Blood Count 2.87 L Hemoglobin 8.8 L Hematocrit 27.8 L Mean Corpuscular Volume 96.9 Mean Corpuscular Hemoglobin 30.7 Mean Corpuscular Hemoglobin Concent 31.7 L Red Cell Distribution Width 17.5 H Platelet Count 242 Mean Platelet Volume 9.5 Neutrophils % 81.2 H Lymphocytes % 8.5 L Monocytes % 7.1 Eosinophils % 2.0 Basophils % 0.2 Nucleated Red Blood Cells % 0.0 Neutrophils # 4.1 Lymphocytes # 0.4 L Monocytes # 0.4 Eosinophils # 0.1 Basophils # 0.0 Nucleated Red Blood Cells # 0.0 Sodium Level 140 Potassium Level 3.7 Chloride Level 105 Carbon Dioxide Level 32 H Anion Gap 7 L Blood Urea Nitrogen 22 H Creatinine 0.64 Glucose Level 84 Calcium Level 8.6 Phosphorus Level 3.5 Magnesium Level 2.1 Test 03/01/17 11:50 Bedside Glucose 199 ALBINA SUNSHINE MD Mar 01, 2017 17:19
--- NOTE | 2017-03-01 19:19 | CONS ---
Date/Time of Note Date/Time of Note DATE: 03/01/17 TIME: 19:18 Assessment/Plan Assessment/Plan Additional Assessment/Plan IMPRESSION: 1. Rectal bleeding. From hemorrhoid 2. Anemia. 3. Status post tracheostomy. 4. Status post gastrostomy tube. 5. Myasthenia gravis. 6. History of hypertension. 7. Diabetes mellitus. 8. Psychiatric illness. 9. Rheumatoid arthritis. 10. Benign prostatic hypertrophy. 11. The patient is confined to the bed. 12. 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 Plan Continue high-fiber diet If bleeding persist then Anusol suppository. Patient is stable from GI point to be discharged. This patient was seen by me in the morning Consultation Date/Type/Reason Admit Date/Time Feb 26, 2017 at 22:19 Initial Consult Date Type of Consultation: Pulmonary 24 HR Interval Summary Constitutional: improved, no complaints Exam/Review of Systems Vital Signs Vitals Vital Signs Date Time Temp Pulse Resp B/P Pulse Ox O2 Delivery O2 Flow Rate FiO2 03/01/17 12:40 70 03/01/17 11:47 96 8.0 35 03/01/17 11:39 98.1 19 116/55 03/01/17 05:15 Aerosol Mask Intake and Output 02/28/17 02/28/17 03/01/17 15:00 23:00 07:00 Intake Total 520 ml 920 ml Balance 520 ml 920 ml Exam Constitutional: alert, oriented, well developed Psych: nl mood/affect, no complaints Head: atraumatic, normocephalic Eyes: EOMI, PERRL, nl conjunctiva, nl lids, nl sclera ENMT: nl external ears & nose, nl lips & teeth, nl nasal mucosa & septum Neck: non-tender, supple Respiratory: clear to auscultation, normal air movement Cardiovascular: nl pulses, regular rate and rhythm Gastrointestinal: nl liver, spleen, non-tender, soft Musculoskeletal: nl extremities to inspection, nl gait and stance Extremities: normal pulses Neurological: [employer] II-XII intact, nl mental status, nl speech, nl strength Skin: nl turgor, No rash or lesions Lymph: nl lymph nodes Results Result Diagram: 03/01/17 0718 03/01/17 0718 Results 24 hrs Laboratory Tests Test 6/27/17 00:10 03/01/17 05:42 03/01/17 07:18 03/01/17 11:50 Bedside Glucose 194 188 199 White Blood Count 5.1 # Red Blood Count 2.87 L Hemoglobin 8.8 L Hematocrit 27.8 L Mean Corpuscular Volume 96.9 Mean Corpuscular Hemoglobin 30.7 Mean Corpuscular Hemoglobin Concent 31.7 L Red Cell Distribution Width 17.5 H Platelet Count 242 Mean Platelet Volume 9.5 Neutrophils % 81.2 H Lymphocytes % 8.5 L Monocytes % 7.1 Eosinophils % 2.0 Basophils % 0.2 Nucleated Red Blood Cells % 0.0 Neutrophils # 4.1 Lymphocytes # 0.4 L Monocytes # 0.4 Eosinophils # 0.1 Basophils # 0.0 Nucleated Red Blood Cells # 0.0 Sodium Level 140 Potassium Level 3.7 Chloride Level 105 Carbon Dioxide Level 32 H Anion Gap 7 L Blood Urea Nitrogen 22 H Creatinine 0.64 Glucose Level 84 Calcium Level 8.6 Phosphorus Level 3.5 Magnesium Level 2.1 EDUAR VERA MD Mar 01, 2017 19:19
--- NOTE | 2017-03-24 13:24 | HP ---
DATE OF ADMISSION: 02/26/2017 CHIEF COMPLAINT: Hematochezia. HISTORY OF PRESENT ILLNESS: This is an 86-year-old male with a past medical chronic respiratory karen lure status post tracheostomy, a history of myasthenia gravis, a history of hypertension, BPH, dysph agia, status post PEG, history of diabetes, history of psychosis, who presents to [facility] from a subacute facility with episodes of hematochezia. The patient had 2 gross bloody s tools in his nurse facility, as a result he was transferred to [facility] for eval uation. Upon arrival to the emergency room, the patient had a blood pressure of 97/57. Laboratory data drawn showed a white count 9.6, hemoglobin 10.4. The patient in the emergency room also had a CT scan of the abdomen and pelvis which showed no evidence of acute pathology, atelectasis, cholecys tectomy, bilateral renal atrophy, diverticular disease, gastrostomy tube. In the emergency room, th e patient was stabilized and transferred to telemetry for evaluation. Overnight, the patient has be en stable. There have been no reports of hemoptysis, hemetemesis, or hematochezia. PAST MEDICAL HISTORY: As stated above, history of chronic respiratory failure, status post tracheos christian, history of rheumatoid arthritis, history of myasthenia gravis, history of BPH, history of dysp hagia, status post PEG. History of DICTATION ENDS HERE, INCOMPLETE Dictated By: HELEN BULLOCK/NATALIE Conf#: [id number] DID#: [id number]
--- NOTE | 2017-03-24 14:25 | GILP ---
DATE OF PROCEDURE: PROCEDURE: Colonoscopy with cold snare polypectomy and biopsy. SURGEON: Eduar Vera MD INDICATION: An 86-year-old male undergoing this procedure for rectal bleeding. The risk of the pro cedure, related and unrelated complications, anesthetic risks, alternatives discussed and informed c onsent was obtained. The consent was obtained from the . DESCRIPTION OF PROCEDURE: The patient was brought to the GI lab, sedated by Dr. Gandhi. After optima l sedation, scope was passed with much ease into the rectum. Stool was yellow in color. Scope was advanced up to transverse colon. There was a flat polyp identified; it was biopsied. This was 1 to 1.5 cm in diameter. Scope was advanced further. Another flat polyp identified in the prececal are a. With the cold snare, the polyp was removed and sent for analysis. Cecum was within normal limit s. Rest of the colon appeared normal. While coming out, mucosa thoroughly inspected. Hemorrhoids identified. IMPRESSION: 1. Hemorrhoids, small in size, cause of bleeding. 2. One flat polyp in the transverse colon, ablated by cold biopsy forceps. 3. Another flat polyp in the prececal area removed with cold snare technique. PLAN: At this point is to review the histopathology of the polyp. Family the never want ed surgery. We will have a sitz bath and Anusol suppository for hemorrhoids. Dictated By: EDUAR QUIROZ/NATALIE Conf#: [id number] DID#: [id number] CC: EDUAR VERA MD;*EndCC*
== END 2017-03-01 15:21 ==
LOC: E/R 18:31 → UNDOADMOB 22:19 → MS4 22:19 → INTOOBSV 22:19 → MS4 23:38 → TEL 02-27 15:53 → UNDODISOB 03-01 15:21
PROVIDERS: ADMIT Internal Medicine; ATTEND Internal Medicine
DX: K62.5 Hemorrhage of anus and rectum (principal); J96.10 Chronic respiratory failure, unspecified whether with hypoxia or hypercapnia; E11.9 Type 2 diabetes mellitus without complications; G70.9 Myoneural disorder, unspecified; I10 Essential (primary) hypertension; D64.9 Anemia, unspecified
CPT/HCPCS: 36415; 45380; 45385; 71010; 74176; 80048; 80053; 82728; 82962; 83540; 83690; 83735; 84100; 84484; 85025; 85610; 85730; 86850; 86900; 86901; 87081; 88305; 93005; 99285; G0378; J1650; J1815; J7040; J7042; J7500